=== PATIENT | male | born 1965 | race Caucasian/White ===

== ENCOUNTER 2018-03-22 12:30 | Emergency (ER) | payer OTHER, MEDICAID ==
[~2018-03-22] VITALS: Ht 175.3 cm; Wt 85.0 kg
[2018-03-22] MEDS ORDERED: ACETAMINOPHEN 325MG TABLET PO ONE (13:00)
[2018-03-22] MEDS ORDERED: PREDNISONE 20MG TABLET PO STA (14:35)
[2018-03-22 16:09] VITALS: BP 131/80
== END 2018-03-22 16:09 | disposition home or self-care (01) ==
LOC: ER 13:25
DX: J18.9 Pneumonia, unspecified organism (principal); T59.91XA Toxic effect of unspecified gases, fumes and vapors, accidental (unintentional), initial encounter; Y92.89 Other specified places as the place of occurrence of the external cause
CPT/HCPCS: 71045; 93005; 99284; J7512